=== PATIENT | male | born 1960 | race African-American/Black ===

== ENCOUNTER 2023-07-26 23:43 | Emergency (ER) | payer OTHER, MEDICAID ==
[~2023-07-26] VITALS: Ht 177.8 cm; Wt 68.1 kg
[2023-07-27 04:06] VITALS: TEMP 97.9
[2023-07-27 07:30] VITALS: PULSE 59; RESP 17; O2SAT 97
[2023-07-27] MEDS ORDERED: MORPHINE SULFATE 4 MG/ML SYR/VIAL IV ONE (07:30)
[2023-07-27] MEDS ORDERED: ONDANSETRON HCL 4 MG/2 ML VIAL IV ONE (07:30)
[2023-07-27] MEDS ORDERED: NAPR-1334 PO (07:36)
[2023-07-27] MEDS ORDERED: ZOFR4T PO (07:36)
[2023-07-27 07:58] LABS: Basophils # (auto) 0 10 ^3/uL (0-0.2); Basophils % (auto) 0.9 % (0.0-2.0); Eosinophils # (auto) 0.3 10 ^3/uL (0-0.8); Hemoglobin 13.2 g/dL (13.5-17.5); Lymphocytes % (auto) 28.6 % (10.0-50.0); Mean Corpuscular Hemoglobin 29.7 pg (28.0-32.0); Mean Corpuscular Hgb Conc. 32.2 g/dL (32.0-36.0); Mean Corpuscular Volume 92.1 fL (80.0-100.0); Monocytes # (auto) 0.4 10 ^3/uL (0-1.3); Monocytes % (auto) 10.7 % (0.0-12.0); Neutrophils # (auto) 1.9 10 ^3/uL (1.6-8.6); Neutrophils % (auto) 52.8 % (37.0-80.0); Red Blood Cells 4.45 10^6/uL (4.5-5.90); Red Cell Distribution Width 13.9 % (11.8-14.3); White Blood Cell 3.6 10^3/uL (4.4-10.8)
[2023-07-27 08:04] LABS: INR 1.06 (0.9-1.15); Prothrombin Time 11.1 sec (9.3-11.8)
[2023-07-27 08:08] LABS: Alanine Aminotransferase 18 U/L (7-40); Albumin 3.9 g/dL (3.2-4.8); Alkaline Phosphatase 79 U/L (46-116); Anion Gap 4 (5-15); Aspartate Aminotransferase 21 U/L (13-40); BUN/Creatinine Ratio 14.3 (10.0-20.0); Blood Urea Nitrogen 12 mg/dL (9-23); Calcium 9.2 mg/dL (8.5-10.1); Carbon Dioxide 31 mmol/L (20-30); Chloride 103 mmol/L (98-107); Glucose 93 mg/dL (74-106); Potassium 4.4 mmol/L (3.5-5.1); Sodium 138 mmol/L (136-145)
[2023-07-27 08:09] LABS: Bilirubin, Total 0.7 mg/dL (0.2-1.0); Total Protein 6.5 g/dL (5.7-8.2)
[2023-07-27 09:10] LABS: Lipase 28 U/L (12-53)
[2023-07-27 09:41] VITALS: BP 147/97; PULSE 62; RESP 18; O2SAT 98
== END 2023-07-27 10:36 | disposition home or self-care (01) ==
LOC: EDBD 23:43 → ER 23:43
DX: R07.89 Other chest pain (principal); M54.2 Cervicalgia; F17.210 Nicotine dependence, cigarettes, uncomplicated; Z79.899 Other long term (current) drug therapy; V43.62XA Car passenger injured in collision with other type car in traffic accident, initial encounter; Y93.89 Activity, other specified; Y92.410 Unspecified street and highway as the place of occurrence of the external cause; Y99.8 Other external cause status
CPT/HCPCS: 36415; 70450; 71250; 72125; 74176; 80053; 83690; 84484; 85025; 85379; 85610; 93005; 96374; 96375; 99285; J2270; J2405

== ENCOUNTER 2024-04-19 19:36 | Inpatient (IN) | payer OTHER, MEDICAID ==
[~2024-04-19] VITALS: Ht 190.5 cm; Wt 67.7 kg
[~2024-04-19 19:36] MED LIST: NAPR-1335 PO; ZOFR4T PO
[2024-04-19 20:51] LABS: Chloride 106 mmol/L (98-107); Potassium 5.1 mmol/L (3.5-5.1); Sodium 140 mmol/L (136-145)
[2024-04-19 20:52] LABS: Anion Gap 4 (5-15); Calcium 9.4 mg/dL (8.7-10.4); Carbon Dioxide 30 mmol/L (20-30)
[2024-04-19 20:57] LABS: BUN/Creatinine Ratio 13.4 (10.0-20.0); Blood Urea Nitrogen 17 mg/dL (9-23); Glucose 94 mg/dL (74-106)
[2024-04-19 21:12] LABS: Basophils # (auto) 0 10 ^3/uL (0-0.2); Basophils % (auto) 0.6 % (0.0-2.0); Eosinophils # (auto) 0.1 10 ^3/uL (0-0.8); Eosinophils % (auto) 2.3 % (0.0-7.0); Hematocrit 40.5 % (41.0-53.0); Hemoglobin 13.4 g/dL (13.5-17.5); Lymphocytes # (auto) 0.9 10 ^3/uL (0.4-5.4); Lymphocytes % (auto) 15.8 % (10.0-50.0); Mean Corpuscular Hemoglobin 29.9 pg (28.0-32.0); Mean Corpuscular Volume 90.6 fL (80.0-100.0); Monocytes # (auto) 0.4 10 ^3/uL (0-1.3); Monocytes % (auto) 7.5 % (0.0-12.0); Neutrophils # (auto) 4.1 10 ^3/uL (1.6-8.6); Neutrophils % (auto) 73.8 % (37.0-80.0); Nucleated Red Blood Cells % 0.1 %; Platelet Count (auto) 264 10^3/uL (140-450); Red Blood Cells 4.47 10^6/uL (4.5-5.90); Red Cell Distribution Width 13.8 % (11.8-14.3); White Blood Cell 5.6 10^3/uL (4.4-10.8)
[2024-04-19 21:14] LABS: Lactic Acid w/Reflex 2.8 mmol/L (0.4-2.0)
[2024-04-20] VITALS (8 sets, daily range): BP systolic 102–117; BP diastolic 54–72; PULSE 46–56; RESP 18; TEMP 98.1–98.9; O2SAT 93–98
[2024-04-20 01:07] LABS: Urine Bacteria None Seen /hpf (None Seen)
[2024-04-20 01:16] LABS: Urine Blood Negative /uL (Negative); Urine Clarity Clear (Clear); Urine Color Light-Yellow (Yellow); Urine Hyaline Cast FEW /lpf (0 - 2); Urine Mucus FEW (None Seen); Urine Protein, UAD Negative (Negative); Urine Specific Gravity 1.016 (1.001-1.035); Urine Urobilinogen Normal (Negative); Urine WBC 12 /hpf (0 - 3)
[2024-04-20] MEDS ORDERED: HYDROcodone-ACET 5/325MG TAB PO PRN (04:45)
[2024-04-20] MEDS ORDERED: MORPHINE SULFATE INJ 2 MG/ml SYRG IV PRN (04:45)
[2024-04-20] MEDS ORDERED: NITROGLYCERIN 0.4 MG SL TAB SL PRN (04:45)
[2024-04-20] MEDS ORDERED: ONDANSETRON HCL 4 MG/2 ML VIAL IV PRN (04:45)
[2024-04-20] MEDS: SODIUM CHLORIDE 0.9% 1,000 ML IV SCH (05:17)
[2024-04-20] MEDS: SODIUM CHLORIDE 0.9% 500 ML IV ONE (05:17)
[2024-04-20 05:18] LABS: Basophils # (auto) 0 10 ^3/uL (0-0.2); Basophils % (auto) 0.6 % (0.0-2.0); Eosinophils # (auto) 0.2 10 ^3/uL (0-0.8); Eosinophils % (auto) 3.7 % (0.0-7.0); Hematocrit 34.4 % (41.0-53.0); Hemoglobin 11.6 g/dL (13.5-17.5); Lymphocytes # (auto) 1.6 10 ^3/uL (0.4-5.4); Lymphocytes % (auto) 33.1 % (10.0-50.0); Mean Corpuscular Hemoglobin 30.4 pg (28.0-32.0); Mean Corpuscular Hgb Conc. 33.8 g/dL (32.0-36.0); Monocytes # (auto) 0.5 10 ^3/uL (0-1.3); Monocytes % (auto) 9.8 % (0.0-12.0); Neutrophils # (auto) 2.5 10 ^3/uL (1.6-8.6); Neutrophils % (auto) 52.8 % (37.0-80.0); Platelet Count (auto) 239 10^3/uL (140-450); Red Blood Cells 3.82 10^6/uL (4.5-5.90); Red Cell Distribution Width 14.5 % (11.8-14.3); White Blood Cell 4.8 10^3/uL (4.4-10.8)
[2024-04-20 05:37] LABS: Alanine Aminotransferase 10 U/L (7-40); Alkaline Phosphatase 69 U/L (46-116); Anion Gap 2 (5-15); Blood Urea Nitrogen 19 mg/dL (9-23); Calcium 8.7 mg/dL (8.7-10.4); Carbon Dioxide 29 mmol/L (20-30); Chloride 108 mmol/L (98-107); Glucose 104 mg/dL (74-106); Sodium 139 mmol/L (136-145)
[2024-04-20 05:38] LABS: Albumin 3.4 g/dL (3.2-4.8); Aspartate Aminotransferase 11 U/L (13-40); Bilirubin, Total 0.4 mg/dL (0.2-1.0); Total Protein 5.7 g/dL (5.7-8.2)
[2024-04-20] MEDS: levETIRAcetam 500 mg/100ml 100 ML IV SCH (10:47)
[2024-04-20] MEDS: cefTRIAXone 1GM/50ML D5W 50 ML IV ONE (13:02)
[2024-04-20] MEDS ORDERED: LORazepam 2MG/ML-1ML VIAL IV PRN ×2 (21:15)
[2024-04-21] VITALS (9 sets, daily range): BP systolic 122–152; BP diastolic 63–83; PULSE 44–61; RESP 12–22; TEMP 97.7–98.6; O2SAT 93–97
[2024-04-21 06:20] LABS: Basophils # (auto) 0 10 ^3/uL (0-0.2); Basophils % (auto) 0.9 % (0.0-2.0); Eosinophils # (auto) 0.3 10 ^3/uL (0-0.8); Eosinophils % (auto) 7.3 % (0.0-7.0); Hematocrit 36.7 % (41.0-53.0); Hemoglobin 12.5 g/dL (13.5-17.5); Lymphocytes # (auto) 2.1 10 ^3/uL (0.4-5.4); Lymphocytes % (auto) 45.1 % (10.0-50.0); Mean Corpuscular Hemoglobin 30.8 pg (28.0-32.0); Mean Corpuscular Hgb Conc. 34.1 g/dL (32.0-36.0); Mean Corpuscular Volume 90.3 fL (80.0-100.0); Monocytes # (auto) 0.4 10 ^3/uL (0-1.3); Monocytes % (auto) 9.3 % (0.0-12.0); Neutrophils # (auto) 1.7 10 ^3/uL (1.6-8.6); Neutrophils % (auto) 37.4 % (37.0-80.0); Nucleated Red Blood Cells % 0.1 %; Platelet Count (auto) 255 10^3/uL (140-450); Red Blood Cells 4.06 10^6/uL (4.5-5.90); Red Cell Distribution Width 14.1 % (11.8-14.3); White Blood Cell 4.6 10^3/uL (4.4-10.8)
[2024-04-21 06:40] LABS: Albumin 3.6 g/dL (3.2-4.8); Alkaline Phosphatase 70 U/L (46-116); Anion Gap 6 (5-15); Aspartate Aminotransferase 10 U/L (13-40); Blood Urea Nitrogen 16 mg/dL (9-23); Calcium 8.8 mg/dL (8.7-10.4); Carbon Dioxide 28 mmol/L (20-30); Chloride 107 mmol/L (98-107); Glucose 75 mg/dL (74-106); Potassium 4.3 mmol/L (3.5-5.1); Sodium 141 mmol/L (136-145)
[2024-04-21 06:41] LABS: Bilirubin, Total 0.8 mg/dL (0.2-1.0); Total Protein 6.1 g/dL (5.7-8.2)
[2024-04-21 06:51] LABS: Alanine Aminotransferase 9 U/L (7-40)
[2024-04-21 08:06] LABS: PSA Free 10.1 ng/mL; Prostate Specific Antigen 95.6 ng/mL (0.0-4.0)
[2024-04-21] MEDS: cefTRIAXone 1GM/50ML D5W 50 ML IV SCH (09:42)
[2024-04-21] MEDS: ACETAMINOPHEN 325 MG TAB PO PRN (10:21)
[2024-04-22] VITALS (8 sets, daily range): BP systolic 120–147; BP diastolic 71–88; PULSE 52–62; RESP 15–18; TEMP 97.7–98.6; O2SAT 97–99
[2024-04-23] VITALS (8 sets, daily range): BP systolic 99–167; BP diastolic 58–87; PULSE 53–93; RESP 14–17; TEMP 97.6–98.7; O2SAT 94–99
[2024-04-23 08:45] LABS: Hepatitis B Surface Antigen Negative (Negative)
[2024-04-23 09:07] LABS: Hepatitis C Antibody Negative (Negative)
[2024-04-24] VITALS (8 sets, daily range): BP systolic 138–151; BP diastolic 78–89; PULSE 52–66; RESP 14–18; TEMP 97.9–98.3; O2SAT 95–100
[2024-04-24] MEDS: DOCUSATE SOD 100 MG CAP PO PRN (11:58)
[2024-04-25 01:00] VITALS: BP 139/78; PULSE 57; RESP 17; TEMP 98; O2SAT 98
[2024-04-25 05:00] VITALS: BP 123/79; PULSE 61; RESP 18; TEMP 97.9; O2SAT 97
[2024-04-25 08:00] VITALS: PULSE 55
[2024-04-25 08:10] VITALS: RESP 16
[2024-04-25 09:00] VITALS: BP 134/74; PULSE 58; RESP 18; TEMP 98.5; O2SAT 94
[2024-04-25] MEDS ORDERED: VALP1CAP4 PO (11:54)
[2024-04-25 13:00] VITALS: BP 127/83; PULSE 84; RESP 18; TEMP 98; O2SAT 97
== END 2024-04-25 16:22 | disposition home or self-care (01) | DRG 871 ==
LOC: ER 19:36 → EDUNIT# 19:36 → EDBD 19:36 → TELE-WESTW 04-20 04:43 → TELE 04-20 04:43 → TELE-WESTW 04-20 07:43
PROVIDERS: ADMIT Nurse Practitioner Family; ATTEND Family Medicine
DX: A41.9 Sepsis, unspecified organism (principal); G93.41 Metabolic encephalopathy; E44.0 Moderate protein-calorie malnutrition; N39.0 Urinary tract infection, site not specified; K92.1 Melena; Z68.1 Body mass index [BMI] 19.9 or less, adult; E86.0 Dehydration; G43.109 Migraine with aura, not intractable, without status migrainosus; G43.B0 Ophthalmoplegic migraine, not intractable; I10 Essential (primary) hypertension; R56.9 Unspecified convulsions; F17.210 Nicotine dependence, cigarettes, uncomplicated; M41.9 Scoliosis, unspecified; G51.0 Bell's palsy; H53.2 Diplopia; N40.0 Benign prostatic hyperplasia without lower urinary tract symptoms; Z82.5 Family history of asthma and other chronic lower respiratory diseases; Z82.49 Family history of ischemic heart disease and other diseases of the circulatory system; Z85.46 Personal history of malignant neoplasm of prostate; Z92.3 Personal history of irradiation; Z80.42 Family history of malignant neoplasm of prostate
CPT/HCPCS: 36415; 70450; 70545; 70551; 71045; 71250; 74176; 78306; 80048; 80053; 81001; 83605; 84154; 84484; 85025; 86803; 87040; 87086; 87340; 93005; 96361; 96365; 96367; G0378

== ENCOUNTER 2024-05-03 03:49 | Inpatient (IN) | payer OTHER, MEDICAID ==
[~2024-05-03] VITALS: Ht 175.3 cm; Wt 62.7 kg
[~2024-05-03 03:49] MED LIST changes: +VALP1CAP4 PO
[2024-05-03 04:37] LABS: Basophils # (auto) 0 10 ^3/uL (0-0.2); Basophils % (auto) 0.4 % (0.0-2.0); Eosinophils # (auto) 0.3 10 ^3/uL (0-0.8); Eosinophils % (auto) 3.6 % (0.0-7.0); Hematocrit 36.1 % (41.0-53.0); Hemoglobin 12.5 g/dL (13.5-17.5); Lymphocytes # (auto) 1.2 10 ^3/uL (0.4-5.4); Lymphocytes % (auto) 17.2 % (10.0-50.0); Mean Corpuscular Hemoglobin 31.2 pg (28.0-32.0); Mean Corpuscular Hgb Conc. 34.7 g/dL (32.0-36.0); Monocytes % (auto) 13.8 % (0.0-12.0); Neutrophils # (auto) 4.6 10 ^3/uL (1.6-8.6); Platelet Count (auto) 187 10^3/uL (140-450); Red Blood Cells 4.01 10^6/uL (4.5-5.90); Red Cell Distribution Width 13.6 % (11.8-14.3); White Blood Cell 7.1 10^3/uL (4.4-10.8)
[2024-05-03 04:49] LABS: Alkaline Phosphatase 79 U/L (46-116); Anion Gap 8 (5-15); Aspartate Aminotransferase < 8 U/L (13-40); BUN/Creatinine Ratio 15.7 (10.0-20.0); Blood Urea Nitrogen 17 mg/dL (9-23); Calcium 8.9 mg/dL (8.7-10.4); Carbon Dioxide 26 mmol/L (20-31); Chloride 103 mmol/L (98-107); Glucose 95 mg/dL (74-106); Potassium 3.5 mmol/L (3.5-5.1); Sodium 137 mmol/L (136-145)
[2024-05-03 04:50] LABS: Bilirubin, Total 0.6 mg/dL (0.2-1.0); Total Protein 6.8 g/dL (5.7-8.2)
[2024-05-03 04:51] LABS: Alanine Aminotransferase < 9 U/L (7-40)
[2024-05-03 08:00] VITALS: PULSE 80; RESP 16; O2SAT 98
[2024-05-03] MEDS: NITROGLYCERIN 0.4 MG SL TAB SL ONE (09:03)
[2024-05-03] MEDS ORDERED: ONDANSETRON HCL 4 MG/2 ML VIAL IV PRN (12:00)
[2024-05-03] MEDS ORDERED: NITROGLYCERIN 0.4 MG SL TAB SL PRN (12:00)
[2024-05-03] MEDS: MORPHINE SULFATE INJ 2 MG/ml SYRG IV PRN ×2 (12:54→16:36)
[2024-05-03] MEDS: hydrALAZINE HCL 20 MG/ML VL IV PRN (13:18)
[2024-05-03 16:34] LABS: Urine Bacteria None Seen /hpf (None Seen)
[2024-05-03 16:47] LABS: Urine Blood Negative /uL (Negative); Urine Clarity Clear (Clear); Urine Color Yellow (Yellow); Urine Protein, UAD TRACE (Negative); Urine Specific Gravity 1.025 (1.001-1.035); Urine Urobilinogen 4 mg/dL (Negative); Urine WBC 1 /hpf (0 - 3); Urine pH 6.5 (5.0-9.0)
[2024-05-03 16:56] LABS: Amphetamine Screen, Urine Pos (NEGATIVE); Barbiturate Scree,Urine Neg (NEGATIVE); Benzodiazephine Screen, Urine Neg (NEGATIVE); Cannabinoid Screen, Urine Pos (NEGATIVE); Cocaine Screen, Urine Neg (NEGATIVE); Opiate Scree,Urine Pos (NEGATIVE); Phencyclidine Screen, Urine Neg (NEGATIVE)
[2024-05-03 20:00] VITALS: BP 196/104; PULSE 83; RESP 16; TEMP 100.1; O2SAT 97
[2024-05-03 21:21] VITALS: BP 179/88; PULSE 74; RESP 18; TEMP 99; O2SAT 96
[2024-05-03 21:25] VITALS: BP_SYST 179; BP_SYST 196; BP_DIAS 104; BP_DIAS 88; PULSE 74; PULSE 83; RESP 16; RESP 18; TEMP 100.1; TEMP 99; O2SAT 96; O2SAT 97
[2024-05-03] MEDS: VALPROIC ACID 250 MG/5 ML ORAL SOLN PO SCH (21:42)
[2024-05-03] MEDS ORDERED: METH-1182 PO (22:14)
[2024-05-03] MEDS ORDERED: AMLO1TAB23 PO (22:14)
[2024-05-03] MEDS ORDERED: CLON0.1T PO (22:14)
[2024-05-04] VITALS (9 sets, daily range): BP systolic 146–165; BP diastolic 85–96; PULSE 87–103; RESP 16–22; TEMP 97.6–100.1; O2SAT 92–98
[2024-05-04 07:07] LABS: Basophils # (auto) 0 10 ^3/uL (0-0.2); Basophils % (auto) 0.2 % (0.0-2.0); Eosinophils # (auto) 0 10 ^3/uL (0-0.8); Eosinophils % (auto) 0.3 % (0.0-7.0); Hematocrit 43.8 % (41.0-53.0); Hemoglobin 15.3 g/dL (13.5-17.5); Lymphocytes # (auto) 1.1 10 ^3/uL (0.4-5.4); Lymphocytes % (auto) 10.5 % (10.0-50.0); Mean Corpuscular Hemoglobin 31.4 pg (28.0-32.0); Mean Corpuscular Hgb Conc. 34.9 g/dL (32.0-36.0); Mean Corpuscular Volume 89.8 fL (80.0-100.0); Monocytes # (auto) 1.8 10 ^3/uL (0-1.3); Neutrophils # (auto) 7.1 10 ^3/uL (1.6-8.6); Platelet Count (auto) 213 10^3/uL (140-450); Red Blood Cells 4.88 10^6/uL (4.5-5.90); Red Cell Distribution Width 13.5 % (11.8-14.3)
[2024-05-04 07:14] LABS: Anion Gap 10 (5-15); Carbon Dioxide 27 mmol/L (20-31); Chloride 99 mmol/L (98-107); Potassium 3.2 mmol/L (3.5-5.1); Sodium 136 mmol/L (136-145)
[2024-05-04 07:16] LABS: Calcium 9.8 mg/dL (8.7-10.4)
[2024-05-04 07:20] LABS: Glucose 128 mg/dL (74-106)
[2024-05-04 07:21] LABS: BUN/Creatinine Ratio 10.5 (10.0-20.0); Blood Urea Nitrogen 9 mg/dL (9-23)
[2024-05-04] MEDS: amLODIPine BESYLATE 5 MG TAB PO SCH (10:32)
[2024-05-04] MEDS: POTASSIUM EFFERVESENT TAB 25 MEQ PO ONE (10:33)
[2024-05-04] MEDS ORDERED: ALBUTEROL SULF 2.5 MG/0.5ML(0.5%) NEB SOLN NEB PRN (20:00)
[2024-05-04] MEDS ORDERED: cloNIDine HCL 0.1 MG TAB PO PRN (20:00)
[2024-05-04] MEDS ORDERED: IPRATROPIUM BROM 0.5 MG/2.5ML INH SOL NEB PRN (20:00)
[2024-05-04] MEDS: AZITHROMYCIN 250 MG TAB PO ONE (20:00)
[2024-05-05] VITALS (13 sets, daily range): BP systolic 126–178; BP diastolic 70–95; PULSE 89–109; RESP 14–19; TEMP 97.5–99.7; O2SAT 92–99
[2024-05-05] MEDS: HYDROcodone-ACET 5/325MG TAB PO PRN (01:10)
[2024-05-05 05:41] LABS: Chloride 100 mmol/L (98-107); Sodium 135 mmol/L (136-145)
[2024-05-05 05:42] LABS: Anion Gap 7 (5-15); Carbon Dioxide 28 mmol/L (20-31)
[2024-05-05 05:43] LABS: Calcium 9.6 mg/dL (8.7-10.4)
[2024-05-05 05:48] LABS: BUN/Creatinine Ratio 12.6 (10.0-20.0); Blood Urea Nitrogen 11 mg/dL (9-23); Glucose 95 mg/dL (74-106)
[2024-05-05] MEDS: AZITHROMYCIN 250 MG TAB PO SCH (09:35)
[2024-05-05] MEDS: cefTRIAXone 1GM/50ML D5W 50 ML IV SCH (09:36)
[2024-05-05] MEDS: FUROSEMIDE 20 MG/2 ML VIAL IV SCH (14:38)
[2024-05-05 18:43] LABS: COVID19 ANTIGEN SOFIA FIA NEGATIVE (NEGATIVE)
[2024-05-05 18:44] LABS: Rapid Influenza A Negative (Negative); Rapid Influenza B Negative (Negative)
[2024-05-06] VITALS (9 sets, daily range): BP systolic 110–146; BP diastolic 65–96; PULSE 68–89; RESP 13–17; TEMP 97.8–98.5; O2SAT 97–100
[2024-05-06] MEDS: IBUPROFEN 600 MG TAB PO PRN (05:35)
[2024-05-06 08:10] LABS: Anion Gap 9 (5-15); Carbon Dioxide 29 mmol/L (20-31); Chloride 98 mmol/L (98-107); Potassium 3.9 mmol/L (3.5-5.1); Sodium 136 mmol/L (136-145)
[2024-05-06 08:11] LABS: Calcium 9.8 mg/dL (8.7-10.4)
[2024-05-06 08:15] LABS: Hematocrit 41.3 % (41.0-53.0); Hemoglobin 14.3 g/dL (13.5-17.5); Mean Corpuscular Hemoglobin 31.3 pg (28.0-32.0); Mean Corpuscular Hgb Conc. 34.7 g/dL (32.0-36.0); Mean Corpuscular Volume 90.3 fL (80.0-100.0); Platelet Count (auto) 245 10^3/uL (140-450); Red Blood Cells 4.57 10^6/uL (4.5-5.90); Red Cell Distribution Width 13.5 % (11.8-14.3); White Blood Cell 10.7 10^3/uL (4.4-10.8)
[2024-05-06 08:16] LABS: BUN/Creatinine Ratio 21.1 (10.0-20.0); Blood Urea Nitrogen 20 mg/dL (9-23); Glucose 84 mg/dL (74-106)
[2024-05-06 08:24] LABS: Basophils % (manual) 0 (0.0-2.0); Blast Cells 0; Eosinophils % (manual) 0 (0-7); Metamyelocytes % 0; Myelocytes % 0; Promyelocytes % 0
[2024-05-06 08:41] LABS: Band Neutrophils % (manual) 2; Lymphocytes % (manual) 11 (10.0-50.0); Monocytes % (manual) 20 (0-12); Platelet Estimate Adequate; RBC Morphology Normal; Reactive Lymphocytes 1
[2024-05-06] MEDS ORDERED: AUG875T PO (13:15)
== END 2024-05-06 19:12 | disposition home or self-care (01) | DRG 871 ==
LOC: EDUNIT# 03:49 → ER 03:49 → EDBD 03:49 → TELE 11:53 → TELE-WESTW 20:41
PROVIDERS: ADMIT Internal Medicine; ATTEND Internal Medicine
DX: A41.50 Gram-negative sepsis, unspecified (principal); J15.69 Pneumonia due to other Gram-negative bacteria; J15.9 Unspecified bacterial pneumonia; I20.0 Unstable angina; I16.0 Hypertensive urgency; E78.5 Hyperlipidemia, unspecified; F12.90 Cannabis use, unspecified, uncomplicated; F15.10 Other stimulant abuse, uncomplicated; G40.909 Epilepsy, unspecified, not intractable, without status epilepticus; I11.9 Hypertensive heart disease without heart failure; E87.6 Hypokalemia; F17.210 Nicotine dependence, cigarettes, uncomplicated; Z20.822 Contact with and (suspected) exposure to COVID-19; Z92.3 Personal history of irradiation; Z85.46 Personal history of malignant neoplasm of prostate; Z82.5 Family history of asthma and other chronic lower respiratory diseases; Z91.199 Patient's noncompliance with other medical treatment and regimen due to unspecified reason; Z79.899 Other long term (current) drug therapy; Z82.49 Family history of ischemic heart disease and other diseases of the circulatory system
CPT/HCPCS: 36415; 71045; 71250; 80048; 80053; 80061; 80307; 81001; 83036; 83735; 83880; 84443; 84484; 85007; 85025; 85027; 86703; 87040; 87426; 87804; 93005; 93306; 97163; G0378